=== PATIENT | male | born 1995 | race Caucasian/White ===

== ENCOUNTER 2017-08-17 12:40 | Emergency (ER) | payer SELFPAY ==
[~2017-08-17] VITALS: Ht 160 cm; Wt 86.3 kg
[2017-08-17 13:05] VITALS: Ht 160 cm; Wt 86.3 kg
== END 2017-08-17 15:16 | disposition home or self-care (01) ==
LOC: ED 12:40
DX: S61.211A Laceration without foreign body of left index finger without damage to nail, initial encounter (principal); W45.8XXA Other foreign body or object entering through skin, initial encounter; Y93.89 Activity, other specified; Y92.89 Other specified places as the place of occurrence of the external cause; Y99.8 Other external cause status
CPT/HCPCS: J2001